=== PATIENT | male | born 1955 | race Caucasian/White ===

== ENCOUNTER 2020-12-30 05:36 | Day surgery (SDC) | payer MEDICARE ==
[2020-12-24 16:55] LABS: CLARITY,URINE CLEAR (Clear); COLOR,URINE YELLOW (Yellow); GLUCOSE, URINE NEGATIVE (Neg); KETONES,URINE NEGATIVE (Neg); LEUKOCYTE ESTERASE ,URINE NEGATIVE (Neg); NITRITES, URINE NEGATIVE (Neg); OCCULT BLOOD,URINE NEGATIVE (Neg); PH,URINE 6.5 (4.8-8.0); PROTEIN,URINE NEGATIVE (Neg); UROBILINOGEN,URINE 0.2 E.U/dL (0.2-1.0)
[2020-12-24 16:56] LABS: BASOPHILS # (AUTO) 0.1 X10'3 (0-0.2); BASOPHILS % (AUTO) 1.6 % (0-1); EOSINOPHILS # (AUTO) 0.1 X10'3 (0-0.9); EOSINOPHILS % (AUTO) 1.3 % (0-6); LYMPHOCYTES # (AUTO) 2.4 X10'3 (1.1-4.8); LYMPHOCYTES % (AUTO) 34.2 % (21-51); MEAN CORPUSCULAR HEMOGLOBIN 31.4 PG (27.0-31.0); MEAN CORPUSCULAR VOLUME 92.1 FL (78-98); MEAN PLATELET VOLUME 7.7 FL (7.4-10.4); MONOCYTES # (AUTO) 0.5 X10'3 (0-0.9); MONOCYTES % (AUTO) 7.2 % (2-12); NEUTROPHILS % (AUTO) 55.7 % (42-75); PRE OP HEMATOCRIT 40.5 % (42.0-52.0); PRE OP HEMOGLOBIN 13.8 g/dL (14.0-17.9); PRE OP PLATELET COUNT 292 X10'3 (140-440); RED BLOOD COUNT 4.39 X10'6 (4.70-6.10); RED CELL DISTRIBUTION WIDTH 13.9 % (11.5-14.5)
[2020-12-24 17:06] LABS: PRE OP PROTIME 10.8 SECONDS (9.0-12.0)
[2020-12-24 17:09] LABS: ALBUMIN 4.3 G/DL (3.4-5.0); ALBUMIN/GLOBULIN RATIO 1.3 (1.1-1.5); ALKALINE PHOSPHATASE 44 IU/L (46-116); BLOOD UREA NITROGEN 27 MG/DL (7-18); CHLORIDE 105 MMOL/L (99-107); CREATININE 0.87 MG/DL (0.60-1.10); PRE OP ALT 23 U/L (30-65); PRE OP ANION GAP 9 (8-16); PRE OP AST 24 U/L (10-37); PRE OP BILIRUB, TOTAL 0.3 MG/DL (0.0-1.0); PRE OP GLUCOSE 103 MG/DL (70-104); PRE OP POTASSIUM 4.2 MMOL/L (3.4-5.1); PRE OP SODIUM 143 MMOL/L (135-145); TOTAL CARBON DIOXIDE 28.8 MMOL/L (24-32); TOTAL PROTEIN 7.7 G/DL (6.4-8.2); eGFR 89 ML/MIN
[2020-12-24 17:13] LABS: UA COLLECTION TYPE CLN CATCH MIDSTREAM
[2020-12-30] VITALS (20 sets, daily range): BP systolic 91–163; BP diastolic 64–97
[~2020-12-30] VITALS: Ht 167.6 cm; Wt 90.7 kg
[~2020-12-30 05:36] MED LIST: ACET-812 PO; ASPI81TA52 PO; CARB1TAB42 PO; LISI-600 PO; SIMV-42 PO; [UNRECOGNIZED DRUG - OTHER] PO; acetaminophen 325mg tablet PO ONE; ceFAZolin 2gm in dextrose, iso 50 ML IV ONE; celeCOXIB 100mg capsule PO ONE; famotidine 20mg tablet PO ONE; gabapentin 300mg capsule PO ONE; metoclopramide 5 mg/ml inj IV ONE; oxyCODONE SR 10mg (sust. release) tab -2 tabs (20mg) PO ONE; ringers solution, lacted 1,000 ML IV SCH; tranexamic acid 1gm/0.7% sal. 100 ML IV ONE; vancomycin 1,500 MG in NS 300ml IV soln IV ONE
[2020-12-30] MEDS ORDERED: TRANEXAMIC ACID 650 MG PO ONE (06:25)
[2020-12-30] MEDS ORDERED: diphenhydrAMINE 25mg capsule PO PRN ×2 (06:35)
[2020-12-30] MEDS ORDERED: magnesium hydroxide 30ml (MOM) UD suspension PO PRN (06:35)
[2020-12-30] MEDS ORDERED: acetaminophen 325mg tablet PO PRN (06:35)
[2020-12-30] MEDS ORDERED: ondansetron/PF 4mg/2ml inj IV PRN ×2 (06:35→08:05)
[2020-12-30] MEDS ORDERED: HYDROmorphone inj. 0.5 MG/0.5 ML DISP.SYRIN IV PRN (06:35)
[2020-12-30] MEDS ORDERED: HYDROmorphone 1 mg/ml syringe IV PRN (06:35)
[2020-12-30] MEDS ORDERED: bisacodyl 10mg suppository rectal RC PRN (06:35)
[2020-12-30] MEDS ORDERED: oxyCODONE/APAP 10/325mg tablet PO PRN (06:35)
--- NOTE | 2020-12-30 06:45 | NUR ---
SPOKE WITH DR IQBAL. REGARDING TRANEXAMIC ACID ADMINISTRATION, HE IS AWARE PT EXPERIENCED A BLOOD CLOT BEHIND LEFT EYE WITH BLINDNESS RESULTING IN THAT EYE 08/2020. VERBAL OKAY TO ADMINISTER TRANEXAMIC ACID PO PRE-OP.
[2020-12-30] MEDS ORDERED: fentaNYL/PF 50MCG/1 ML 2ML syringe ONE (07:59)
[2020-12-30] MEDS: carbidopa/levodopa 50/200mg CR tablet PO SCH ×3 (08:00→20:04)
[2020-12-30] MEDS: ascorbic acid 500mg tablet PO SCH ×3 (08:00→20:04)
[2020-12-30] MEDS ORDERED: MIDAZolam 1mg/ml 10ml vial ONE (08:00)
[2020-12-30] MEDS: gabapentin 300mg capsule PO SCH ×3 (08:00→20:04)
[2020-12-30] MEDS: multivitamins, therapeutics tablet PO SCH (08:00)
[2020-12-30] MEDS ORDERED: proCHLORperazine 10 MG/2 ml inj IV PRN (08:05)
[2020-12-30] MEDS ORDERED: ringers solution, lacted 1,000 ML IV SCH (08:05)
[2020-12-30] MEDS ORDERED: morphine 2 MG/ML inj. syringe IV PRN (08:05)
[2020-12-30] MEDS ORDERED: ROPIVAcaine 0.2%/PF PUMP/bolus 550 ML ADDCANAL SCH (08:05)
[2020-12-30] MEDS ORDERED: ROPIVAcaine 0.2% (10 MG/5 ML) BOLUS INJECTION ADDCANAL PRN (08:05)
[2020-12-30] MEDS ORDERED: morphine 4 MG/ML inj SYRINge IV PRN (08:05)
[2020-12-30] MEDS ORDERED: meperidine/PF 25mg/ml syringe IV PRN ×3 (08:05)
[2020-12-30] MEDS: aspirin 325mg tablet PO SCH (08:30)
[2020-12-30] MEDS ORDERED: vancomycin 1,000mg inj ONE (08:37)
[2020-12-30] MEDS ORDERED: propofol inj 20 ML IV ONE (10:10)
--- NOTE | 2020-12-30 10:42 | NUR ---
Received from OR via BED, accompanied by Anesthesiologist DR ALVARADO and report given by Anesthesiologist. PT DROWSY, DENIES PAIN, RIGHT KNEE W/DRSG, ICE PACK, LEG WRAP, MAUREEN DRSG, CDI. ACB CATHETER INTACT. Addendum: 12/30/20 at 1115 by Marilynn Blanca RN Amended: Links added.
--- NOTE | 2020-12-30 12:22 | NUR ---
Report called to receiving nurse. Transferred via BED, 1 BAG OF Belongings SENT W/PT TO ROOM 360B. RECEIVING RN AT BEDSIDE TO RECEIVE PT, BLL, CALL LIGHT GIVEN, SIDE RAILS UP X 2. Special Issues communicated to receiving nurse. YES. Addendum: 12/30/20 at 1235 by Marilynn Blanca RN Amended: Links added.
--- NOTE | 2020-12-30 12:47 | NUR ---
Patient said he is really in pain like 07/31. OnQ adjusted from 4ml/hr to 6ml/hr plus the bolus self-administered by patient. Addendum: 12/30/20 at 1504 by Hyun Boykin RN As of this time, the OnQ pump is set at 14ml/hr. Physical therapist Darlin said she adjusted the rate as patient was very pain and needed to go for a walk with PT. Patient tolerating this rate so far.
[2020-12-30] MEDS: potassium cl 20mEq in 1/2 NS 1,000 ML IV SCH ×3 (14:50→22:35)
[2020-12-30] MEDS ORDERED: tranexamic acid 1gm/0.7% sal. 100 ML IV ONE (16:00)
[2020-12-30] MEDS: ceFAZolin 2gm in dextrose, iso 50 ML IV SCH ×2 (17:09→23:53)
--- NOTE | 2020-12-30 18:27 | NUR ---
Problems reprioritized. Patient report given, questions answered & plan of care reviewed with Shahrzad BISHOP.
--- NOTE | 2020-12-30 18:28 | NUR ---
Patient in room [facility]. I have received report from Hyun BISHOP and had the opportunity to ask questions and assume patient care.
[2020-12-30] MEDS ORDERED: VANCOMYCIN 1,500MG inj. 1,500 MG in normal saline 500ml IV soln 300 ML IV SCH (20:00)
[2020-12-30] MEDS ORDERED: lisinopril 20mg tablet PO SCH (21:00)
[2020-12-30] MEDS ORDERED: ROPINIROLE 4 MG PO SCH (21:00)
[2020-12-30] MEDS ORDERED: sennosides 8.6mg tablet PO SCH (21:00)
--- NOTE | 2020-12-31 02:26 | NUR ---
MAUREEN control box was vibrating continuously. With the assistance of Zina BISHOP, the ortho nurse, we reinforced the dressing with tegaderm, however we were still unable to obtain a seal and maintain suction. After removing the dressing and using betadine on the incision, we did a complete MAUREEN dressing change and achieved seal and suction.
[2020-12-31] MEDS: potassium cl 20mEq in 1/2 NS 1,000 ML IV SCH (03:14)
[2020-12-31 04:20] VITALS: BP 134/79
[2020-12-31] MEDS: oxyCODONE/APAP 10/325mg tablet PO PRN ×2 (04:27→09:06)
--- NOTE | 2020-12-31 06:07 | NUR ---
Problems reprioritized. Patient report given, questions answered & plan of care reviewed with Mirela BISHOP.
[2020-12-31] MEDS ORDERED: ROPIVAcaine inj 250 MG, ketorolac tromethamine inj. 30 MG, CloNIDine/PF inj 80 MCG, epi... IU ONE ×5 (06:50)
[2020-12-31 07:07] LABS: BASOPHILS % (AUTO) 0.5 % (0-1); EOSINOPHILS # (AUTO) 0.2 X10'3 (0-0.9); EOSINOPHILS % (AUTO) 2.6 % (0-6); HEMATOCRIT 34.3 % (42.0-52.0); LYMPHOCYTES # (AUTO) 1.4 X10'3 (1.1-4.8); LYMPHOCYTES % (AUTO) 18.9 % (21-51); MEAN CORPUSCULAR HEMOGLOBIN 31.9 PG (27.0-31.0); MEAN CORPUSCULAR HGB CONC 34.8 g/dL (33.0-36.5); MEAN CORPUSCULAR VOLUME 91.5 FL (78-98); MEAN PLATELET VOLUME 7.4 FL (7.4-10.4); MONOCYTES # (AUTO) 0.8 X10'3 (0-0.9); MONOCYTES % (AUTO) 11.6 % (2-12); NEUTROPHILS # (AUTO) 4.8 X10'3 (1.8-7.7); NEUTROPHILS % (AUTO) 66.4 % (42-75); PLATELET COUNT 236 X10'3 (140-440); RED BLOOD COUNT 3.75 X10'6 (4.70-6.10); RED CELL DISTRIBUTION WIDTH 13.6 % (11.5-14.5); WHITE BLOOD COUNT 7.2 X10'3 (4.5-11.0)
[2020-12-31 07:10] VITALS: BP 150/74
[2020-12-31] MEDS ORDERED: atorvastatin 10mg tablet PO SCH (08:00)
[2020-12-31 08:02] LABS: ANION GAP 9 (8-16); CHLORIDE 105 MMOL/L (99-107); POTASSIUM 4.4 MMOL/L (3.5-5.1); SODIUM 140 MMOL/L (135-145); TOTAL CARBON DIOXIDE 26.3 MMOL/L (24-32)
[2020-12-31] MEDS ORDERED: ASPI-1 PO (08:27)
[2020-12-31] MEDS: aspirin 325mg tablet PO SCH (09:06)
[2020-12-31] MEDS: gabapentin 300mg capsule PO SCH (09:06)
[2020-12-31] MEDS: carbidopa/levodopa 50/200mg CR tablet PO SCH (09:06)
[2020-12-31] MEDS: ascorbic acid 500mg tablet PO SCH (09:06)
[2020-12-31] MEDS: multivitamins, therapeutics tablet PO SCH (09:06)
[2020-12-31 11:00] VITALS: BP 105/60
--- NOTE | 2020-12-31 11:17 | NUR ---
PIV to L FA DC'd w/ cannula intact. Site clear, gauze and tape applied.
--- NOTE | 2020-12-31 11:38 | NUR ---
REVIEWED DISCHARGE PAPERWORK WITH PT. REVIEWED DISCHARGE MEDICATION ASA WITH PT. PT RARELY SERIOUS AND WAS JOKING AROUND ABOUT "81 MG? 300MG? WHAT DIFFERENCE DOES IT MAKE?" RE-EDUCATED ON THE IMPORTANCE OF TAKING MEDICATION PRESCRIBED, POTENTIAL ASE OF MEDICATIONS, AND CORRECT DOSAGE OF MEDICATION. NO GOOD VERBAL FEEDBACK OF UNDERSTANDING. PT VERY DISTRACTED DURING DISCHARGE REVIEW. POOR VERBAL FEEDBACK AND PT. TRYING TO MAKE MULTIPLE JOKES. IV ALREADY DISCHARGED BY CHARGE. PT. DID STATE THAT HE HAD OUTPATIENT PHYSICAL THERAPY ALREADY AND HAD THEIR CONTACT INFORMATION. HE STATED "THEY WERE SUPPOSED TO MEET ME HERE IN THE HOSPITAL". HOME MEDS RETRIEVED FROM PHARMACY AND GIVEN TO PT. PT EDUCATED NOT TO TAKE THEM IN HOSPITAL. PT. KNOWS TO F/U WITH MD IQBAL AND HAS BEEN PROVIDED OFFICE ADDRESS AND PHONE NUMBER. PT GATHERED UP HIS BELONGINGS. HE STATES HIS WALKER IS WITH HIS RIDE PICKING HIM UP. STAFF MEMBER ESCORTED PT. DOWNSTAIRS TO HIS RIDE.
[2020-12-31] MEDS ORDERED: celeCOXIB 100mg capsule PO SCH (20:00)
== END 2020-12-31 11:32 | disposition home or self-care (01) ==
LOC: PAS 05:36 → SUR 3N 06:33 → PAS 12-31 11:32
PROVIDERS: ATTEND Orthopaedic Surgery
DX: M17.11 Unilateral primary osteoarthritis, right knee (principal); M67.461 Ganglion, right knee; M25.561 Pain in right knee; M21.161 Varus deformity, not elsewhere classified, right knee; E66.9 Obesity, unspecified; Z87.891 Personal history of nicotine dependence; Z91.81 History of falling
CPT/HCPCS: 27447; 36415; 71046; 73560; 80051; 80053; 81003; 82948; 85025; 85610; 85730; 86885; 86900; 86901; 87081; 87635; 93005; 97110; 97116; 97162; 97530; 97535; A6454; C1713; C1776; J2250; J2704; J2765; J2795; J3010; J3370; J7040; J7120; A4215; A7000; G0378; J3480